=== PATIENT | male | born 1940 | race Caucasian/White ===

== ENCOUNTER 2017-07-10 06:28 | Emergency (ER) | payer MEDICARE, BC ==
[2017-07-10 06:44] VITALS: BP 166/73
[2017-07-10] MEDS ORDERED: Acetaminophen/oxyCODONE 325-5 MG Tab PO ONE (07:04)
--- NOTE | 2017-07-10 07:04 | EDM.PDOC ---
ED HPI GENERAL MEDICAL PROBLEM - General Chief Complaint: Back Pain or Injury Stated Complaint: FELL ON ICE RIB PAIN Time Seen by Provider: 07/10/17 06:59 Source of Information: Reports: Patient History Limitations: Reports: No Limitations - History of Present Illness INITIAL COMMENTS - FREE TEXT/NARRATIVE: 76-year-old male attends the ED with increasing pain in his right flank area. Patient initial injury occurred 2 days ago when he got out of his vehicle slipped on the ice landing very hard on his right lower mid back. Dr. henley out of him for a period of time. States she had x-rays done at [facility] of the thoracic spine which apparently did not show any fractures. He was to the chiropractor yesterday and was told that he had a rib head out of place and it was remanipulated. States pain is been terrible since time of injury to the point that he is unable to sleep. Spent the last 2 nights in the easy chair sitting up. Some tramadol for pain which is not helping at all. Patient cannot take a deep breath. Cough sounds quite gurgly and wet. He is a smoker as well. Fever chills at this time. He denies hitting his head or losing consciousness. States he can't hardly move his right arm because it makes his back pain worse. Cannot take a deep breath at all. Hurts very badly to cough. Onset: Sudden Onset Date: 07/08/17 Onset Time: 07:00 Duration: Day(s): Location: Reports: Back (Right flank area over ribs 8 and 9 and 10.) Quality: Reports: Ache, Sharp, Stabbing Severity: Moderate Improves with: Reports: Rest Worsens with: Reports: Other, Movement Context: Denies: Activity (Coughing makes it much worse. Moving his right arm also makes it hurt worse.), Exercise, Lifting, Sick Contact, Trauma Associated Symptoms: Reports: Chest Pain, Cough, cough w sputum, Shortness of Breath (Can take a deep breath because it makes the pain much worse.). Denies: No Other Symptoms, Confusion (Right posterior chest wall pain), Diaphoresis, Fever/Chills, Headaches, Loss of Appetite, Malaise, Nausea/Vomiting, Rash, Seizure, Syncope, Weakness Treatments SCOW HAND: Reports: Other (see below) (Using tramadol for pain relief without much relief.) Right Middle Back Pain Score (Numeric/FACES): 10 - Related Data Allergies Allergy/AdvReac Type Severity Reaction Status Date / Time No Known Allergies Allergy Verified 07/10/17 06:44 Home Meds: Home Meds Hydrochlorothiazide/Lisinopril [Lisinopril/HCTZ 10-12.5 MG] 10 - 12.5 mg PO DAILY 11/14/15 [History] amLODIPine Besylate [Amlodipine Besylate] 2.5 mg PO DAILY 11/14/15 [History] Acetaminophen/oxyCODONE [Percocet 325-5 MG] 1 - 2 each PO Q4H PRN #24 tab [Rx] Past Medical History HEENT History: Reports: Impaired Vision Cardiovascular History: Reports: Aneurysm, Hypertension - Past Surgical History Cardiovascular Surgical History: Reports: AAA Repair GI Surgical History: Reports: Hernia Repair/Other Social & Family History - Family History Family Medical History: Noncontributory - Tobacco Use Smoking Status *Q: Current Every Day Smoker Years of Tobacco use: 40 Packs/Tins Daily: 1 - Caffeine Use Caffeine Use: Reports: None - Recreational Drug Use Recreational Drug Use: No - Living Situation & Occupation Living situation: Reports: Occupation: Employed ED ROS GENERAL - Review of Systems Review Of Systems: See Below Constitutional: Reports: Decreased Appetite. Denies: Fever, Chills, Malaise, Weakness, Fatigue, Weight Loss HEENT: Reports: No Symptoms Respiratory: Reports: Shortness of Breath, Cough (Chronic cough from cigarette smoking but cough is now worse and very painful to cough in his right flank), Sputum. Denies: Wheezing, Pleuritic Chest Pain, Hemoptysis (Can occasionally get some phlegm up. Denies any hemoptysis.), Other Cardiovascular: Reports: Chest Pain, Blood Pressure Problem (Right posterior chest wall pain.), Dyspnea on Exertion (Chronic hypertension usually well- controlled with medication). Denies: Claudication, Edema, Lightheadedness, Orthopnea, Palpitations, PND, Syncope, Other Endocrine: Reports: No Symptoms GI/Abdominal: Reports: No Symptoms : Reports: No Symptoms Musculoskeletal: Reports: Back Pain (Right back over ribs 89 and 10 clinically.) Skin: Reports: No Symptoms Neurological: Reports: No Symptoms Psychiatric: Reports: No Symptoms ED EXAM, UPPER BACK/NECK PAIN - Physical Exam Exam: See Below Exam Limited By: No Limitations General Appearance: Alert, WD/WN, Moderate Distress (He has to hold real still and avoids coughing be due to the severity of the pain. Movement of his right arm makes the pain much worse.) Eye Exam: Bilateral Eye: Normal Inspection Head Exam: Atraumatic, Normocephalic Neck Exam: Normal Alignment, Normal Inspection, Limited Range of Motion. No: Muscle Spasm, Painful Range of Motion, Paraspinous Muscle Tender Cardiovascular/Respiratory: Regular Rate, Rhythm, No JVD, Rhonchi (Right lower lung field with some dullness to percussion suggestive of a possible hemothorax right posterior lung field. Gurgling respirations on deep breathing and coughing.), Other (Respiratory is 20/m. Pulse ox is not listed.). No: Normal Peripheral Pulses, Normal Breath Sounds GI/Abdominal: Normal Bowel Sounds, Soft, Non-Tender, No Organomegaly, No Distention, No Abnormal Bruit, No Mass, Pelvis Stable. No: Hepatomegaly Back Exam: CVA Tenderness (R) (Very tender over ribs 8 and 9 and 10 posterior laterally with over lying swelling. No ecchymoses or abrasions in this area yet. ), Other (Mostly rib tenderness.). No: Full Range of Motion, Vertebral Tenderness Extremities: Normal Inspection, Normal Range of Motion, Non-Tender, No Pedal Edema, Normal Capillary Refill Neurologic: No Motor/Sensory Deficits, Alert, Normal Mood/Affect, Oriented x 3 Psychiatric: Normal Affect, Normal Mood Skin Exam: Normal Color, Warm/Dry Lymphatic: No Adenopathy Course - Vital Signs Last Recorded V/S: Last Vital Signs Temp 36.4 C 07/10/17 06:38 Pulse 104 H 07/10/17 06:38 Resp 20 07/10/17 06:38 BP 166/73 H 07/10/17 06:38 Pulse Ox - Orders/Labs/Meds Orders: Active Orders 24 hr Category Date Time Status Chest wo Cont [CT] Stat Exams 07/10/17 07:04 Taken Meds: Medications Discontinued Medications Generic Name Dose Route Start Last Admin Trade Name Freq PRN Reason Stop Dose Admin Oxycodone/Acetaminophen 2 tab 07/10/17 07:04 07/10/17 07:10 Percocet 325-5 Mg PO 07/10/17 07:05 2 tab ONETIME ONE Administration - Radiology Interpretation Free Text/Narrative:: 76-year-old male presents to the ED for evaluation of his persistent severe pain right flank area of his posterior back after slipping and falling on ice 2 days ago. He's been seen at [facility] 2 days ago x-rays of his thoracic spine were apparently carried out and reported to be negative. He was to the chiropractor yesterday and apparently told he had a rib head out and was put back in place. States the pain is constant and worsened by breathing and coughing. Unable to sleep due to the severity of pain. Is using tramadol for pain relief with Bentyl very little relief. Examination shows pain localized to the eighth ninth and 10th ribs posterior laterally in the right side. Gurgling respirations are present on examinations suggesting possible underlying hemothorax. There is overlying swelling in this area. Question whether he's developed a hemothorax from fractured rib. Plan CT chest without contrast. We' ll give him 2 Percocet tablets by mouth with some crackers as he has not yet eaten today. - Re-Assessments/Exams Free Text/Narrative Re-Assessment/Exam: 07/10/17 08:01 CT chest reveals atelectasis in the right lower lobe and perhaps a mild hemothorax. An early pneumonia cannot be ruled out although the patient does not have a fever. There appears to be fractures of the sixth , seventh ,eighth and ninth ribs posteriorly laterally. Treatment to to be Renard wrap for comfort measures. Percocet tabs 5/325 one or 2 every 4-6 hours as needed for pain relief 24 tabs provided. Patient advised to use the Renard wrap daily for 10-14 days until comfortable. Advised to be sleeping in the easy chair for the next 3 weeks before he can get back into bed to sleep comfortably. He will report back to hospital. The develops any fever chills or increased productive cough. He is a smoker and therefore at risk of pneumonia. Advised MiraLAX powder 17 g once daily well on the pain pills to prevent constipation. Departure - Departure Time of Disposition: 07:54 Disposition: Home, Self-Care 01 Condition: Fair Clinical Impression: Fracture four ribs-closed Qualifiers: Encounter type: initial encounter Laterality: right Qualified Code(s): S22.41XA - Multiple fractures of ribs, right side, initial encounter for closed fracture - Discharge Information Prescriptions: Acetaminophen/oxyCODONE [Percocet 325-5 MG] 1 - 2 each PO Q4H PRN #24 tab PRN Reason: pain relief. Instructions: Rib Fracture, [id number] Referrals: PCP,None [Primary Care Provider] - Forms: ED Department Discharge Additional Instructions: Evaluation the emergency room this morning in regards to blunt trauma suffered to the right posterior lateral chest wall from falling on the ice 2 days ago. Examination reveals swelling and severe pain with movement of the right arm. Severe pain with deep breathing and coughing. CT of the chest confirms fracture of 4 ribs on the right posterior lateral chest wall. Ribs 678 and 9 appear to have been fractured. They are good position and will heal on their own but they continue to move with every breath and movement. Bone and start to get sticky about 10 days after injury in this starts to limit the movement and they start to mid together. It'll be a full 6 weeks until these ribs are minutes together completely. Activity as tolerated. Renard wrap on during the day for the next 10- 12 days. Or until you can breathe comfortably without it. Pain medication is Percocet 09/03/24 one or 2 tablets every 4-6 hours needed for pain relief. Because these pain medicines like to cause constipation suggest also buying some MiraLAX powder and taking 1 scoop once daily to prevent constipation from the pain pills. Follow-up with personal care physician if any further problems occur. - My Orders Last 24 Hours: My Active Orders 07/10/17 07:04 Chest wo Cont [CT] Stat - Assessment/Plan Last 24 Hours: My Active Orders 07/10/17 07:04 Chest wo Cont [CT] Stat
--- NOTE | 2017-07-10 08:35 | CT ---
CT chest Technique: Multiple axial sections through the chest were obtained. Intravenous contrast not utilized. Comparison: No prior chest x-ray. Findings: Graft is partially visualized within the aorta. Coronary artery calcification is seen. Slightly prominent mediastinal lymph nodes are noted most likely reactive from old inflammatory process. Atherosclerotic change is noted within the nondilated thoracic aorta. Parenchymal density is noted within the right lung base. Emphysematous changes are noted. Slight parenchymal densities are also seen within the right middle lobe and lingula. Scarring is noted within the right lung apex. Subpleural blebs are noted on the right side as well as mild scattered bullous change. Fractures are seen within the posterolateral fifth, sixth and seventh right ribs. Mild displacement is seen of the fifth and sixth ribs. No additional fracture is seen within the ribs. Degenerative change is seen within the spine. No compression deformities are seen. Reconstructed sagittal images showing the sternum to appear unremarkable other than vacuum phenomena at the sternomanubrial junction. Impression: 1. Fractures within the fifth, sixth and seventh ribs as noted above. 2. Parenchymal density within the right lung base. If patient has infectious symptoms this could represent an area of pneumonia. Findings could also represent scarring and fibrosis. 3. Diffuse emphysematous change is present. 4. Other incidental findings as noted above. Diagnostic code #3
== END 2017-07-10 08:06 | disposition home or self-care (01) ==
LOC: JD.ED 06:28
DX: S22.41XA Multiple fractures of ribs, right side, initial encounter for closed fracture (principal); I10 Essential (primary) hypertension; F17.210 Nicotine dependence, cigarettes, uncomplicated; Z79.899 Other long term (current) drug therapy; W00.0XXA Fall on same level due to ice and snow, initial encounter
CPT/HCPCS: 71250; 99284; A9270; 99283

== ENCOUNTER 2017-07-10 18:08 | Emergency (ER) | payer MEDICARE, BC ==
[2017-07-10 18:44] VITALS: BP 130/72
--- NOTE | 2017-07-10 18:56 | EDM.PDOC ---
ED HPI GENERAL MEDICAL PROBLEM - General Chief Complaint: Lower Extremity Injury/Pain Stated Complaint: FEET ARE SWELLING Time Seen by Provider: 07/10/17 18:40 Source of Information: Reports: Patient, Family History Limitations: Reports: No Limitations (Son) - History of Present Illness INITIAL COMMENTS - FREE TEXT/NARRATIVE: 76-year-old male attends the ED for the second time today. His chief complaint now is swelling of his feet. He was concerned that is related to his new pain medication which he was prescribed this morning for 4 broken ribs on his right posterior lateral thorax. However one examine his feet they are swollen up to mid tib-fib and raw obviously swollen this morning but I did not examine them as I was concerned more with his chest. Patient has Lasix pills at home already but he doesn't usually take them. Patient was overall reassured that the medication is not causing his feet to swell. His other concern is that the pain medication isn't helping the pain all that much. He slept for only 2 hours today and he tried to go to bed had terrible pain when he tried to get out of bed. I have advised him earlier this morning that he needs to stay in the easy chair to sleep for the next 3 weeks. He therefore appears to be quite obstinate and stubborn. His son is here with him today and understands that he is on for the most part maximum amount of pain medication for his age. Otherwise and will start to cause confusion and potentially make him fall. I therefore suggested that he take Motrin 600 mg every 6-8 hours for pain relief in addition to the cassette. Onset: Unknown/Unsure (Patient was concerned that his leg started swelling after he started the pain medicine today which is impossible.) Onset Date: 07/06/17 (Slipped and fell while getting out of his vehicle 4 days ago landing hard on his right back. See history of present illness in chart done earlier this morning.) Duration: Day(s): Location: Reports: Chest (Fell 4 days ago injury to posterior lateral right chest wall) Quality: Reports: Ache, Sharp, Stabbing Severity: Moderate (Continues to have moderate to severe pain because he is continue to try and be as active as he was normally. He refuses basically to take it easy and rest.) Improves with: Reports: Rest Worsens with: Reports: Movement Context: Reports: Trauma (Abdomen fell initially with blunt trauma to the right posterior lateral chest wall and back) Associated Symptoms: Reports: Chest Pain, Cough (Has a cough from previous cigarette smoking with COPD.) Treatments PULP PILER: Reports: Other (see below) Other Treatments PULP PILER: oxycodone prn Bilateral Lower Leg Pain Score (Numeric/FACES): 10 - Related Data Allergies Allergy/AdvReac Type Severity Reaction Status Date / Time No Known Allergies Allergy Verified 07/10/17 06:44 Home Meds: Home Meds amLODIPine Besylate [Amlodipine Besylate] 2.5 mg PO DAILY 11/14/15 [History] Acetaminophen/oxyCODONE [Percocet 325-5 MG] 1 - 2 each PO Q4H PRN #24 tab [Rx] Lisinopril 10 mg PO DAILY 07/10/17 [History] Rosuvastatin [Crestor] 20 mg PO DAILY 07/10/17 [History] Past Medical History HEENT History: Reports: Impaired Vision Cardiovascular History: Reports: Aneurysm, Hypertension - Past Surgical History Cardiovascular Surgical History: Reports: AAA Repair GI Surgical History: Reports: Hernia Repair/Other Social & Family History - Family History Family Medical History: Noncontributory - Tobacco Use Smoking Status *Q: Current Every Day Smoker Years of Tobacco use: 40 Packs/Tins Daily: 0.5 - Caffeine Use Caffeine Use: Reports: Coffee, Soda - Recreational Drug Use Recreational Drug Use: No - Living Situation & Occupation Living situation: Reports: Occupation: Employed Review of Systems - Review of Systems Review Of Systems: See Below Constitutional: Reports: No Symptoms Eyes: Reports: No Symptoms Ears: Reports: No Symptoms Nose: Reports: No Symptoms Mouth/Throat: Reports: No Symptoms Respiratory: Reports: Shortness of Breath, Wheezing, Cough, Other (Has known COPD.). Denies: Pleuritic Chest Pain Cardiovascular: Reports: Edema (He does have chronic edema of his lower extremities although he fails to recognize this at most times. Has a history of being placed on Lasix in the past as well as hydrochlorothiazide with lisinopril daily which he refuses to take. Lasix primarily because it makes him void too much and the other medication because it made him dizzy lightheaded did drop his blood pressure too much.). Denies: Chest Pain GI/Abdominal: Reports: No Symptoms Genitourinary: Reports: Other (Urinary frequency due to prostatic hypertrophy.) Musculoskeletal: Reports: Back Pain, Other (Right chest wall pain due to fall fractured ribs identified on CT earlier today.) Skin: Reports: No Symptoms Neurological: Reports: Confusion (I find the patient perhaps a little confused and disoriented likely because of the pain medication.) Psychiatric: Reports: Mood Lability ED EXAM, GENERAL - Physical Exam Exam: See Below Exam Limited By: Other (Patient is a little rough around the edges and hard to get along with because he is quite stubborn and he doesn't listen quite so well. ) General Appearance: Alert, Moderate Distress (He is in a moderate amount of pain as he continues to move he doesn't sit still and he believes he should be better in a couple of days. Shirt on many times that it'll be at least 3 weeks before he is able to move around fairly normally and sleep in a normal bed and 6 weeks until his ribs are healed up completely.) Head: Atraumatic, Normocephalic Neck: Normal Inspection, Supple, Non-Tender, Full Range of Motion, Limited Range of Motion (Crepitus with movement of his neck due to underlying osteoarthritic changes) Respiratory/Chest: Respiratory Distress (Mild tachypnea at rest.), Decreased Breath Sounds, Wheezing (Breath sounds are diminished to the posterior 25-30% of lung bass due to COPD. No expiratory wheeze heard bilaterally.) Cardiovascular: Regular Rate, Rhythm, Other (Patient does have 3+ pitting edema both lower extremities up to the upper tib-fib bilaterally.) Peripheral Pulses: 1+: Posterior Tibial (L) (When standing his feet are bluish in color due to a sacral cyanosis because of his COPD and O2 sats of 88-92% on room air. Also venous pooling in his feet is causing him to look a little lower than normal.), Posterior Tibial (R), Dorsalis Pedis (L), Dorsalis Pedis (R) Course - Vital Signs Last Recorded V/S: Last Vital Signs Temp 36.7 C 07/10/17 18:39 Pulse 103 H 07/10/17 18:39 Resp 20 07/10/17 18:39 BP 130/72 07/10/17 18:39 Pulse Ox 86 L 07/10/17 18:39 - Radiology Interpretation Free Text/Narrative:: 76-year-old male who might seen earlier in the day and diagnosed with fractured right ribs 678-9 on the right posterior lateral chest wall by CT exam returns to the ED with concerns that his swelling feet are secondary to the new pain medicine Percocet. Reassured at length that this is not possible. Percocet will not cause his legs to swell. He has chronic dependent edema and has been placed on Lasix in the past for this which she doesn't take the medication. Patient is discussed and that is not 100% pain-free from the current pain meds and he was reassured at length that he will not be 100% pain-free that the pain medicines are designed to take the edge off the pain. Advised him to take Motrin 600 mg every 6 hours in addition to the Percocet to try and further alleviate his pain. Unfortunately the Motrin may well make him have a little bit of increase in dependent edema. 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 It will improve once he puts his legs up when he sits as he has not been very active the last 4 days due to injury to his ribs. Departure - Departure Time of Disposition: 19:03 Disposition: Home, Self-Care 01 Condition: Fair Clinical Impression: Dependent edema - Discharge Information Referrals: PCP,None [Primary Care Provider] - Additional Instructions: Evaluation in the ED today in regards to increased swelling in her lower extremities which is been present for a lengthy period of time.. Percocet tablets are not contributing to this edema. Edema is increasing for the swelling is increasing in your lower extremities due to being dependent i.e. sitting much more because of your broken ribs or not as active. Her walking the Axes a pump to push the blood back to the heart. This doesn't happen when you' re sitting or not moving. Suggest treatment with Lasix which you have at home. 2 tablets tonight then 1 tablet every morning until the swelling goes down which will be about a week. Pretty of feet up when your resting is very important is a will help the blood get back to your heart as well. As we discussed continue using Motrin 600 mg every 6-8 hours in addition to the Percocet to help with the pain in your ribs until they can begin to heal. The first 10 days of the worst. After 3 weeks things are pretty good but it 6-8 weeks for your ribs to heal completely.
== END 2017-07-10 19:10 | disposition home or self-care (01) ==
LOC: JD.ED 18:08
DX: R60.0 Localized edema (principal); I10 Essential (primary) hypertension; J44.9 Chronic obstructive pulmonary disease, unspecified; F17.210 Nicotine dependence, cigarettes, uncomplicated; Z79.899 Other long term (current) drug therapy; W01.0XXA Fall on same level from slipping, tripping and stumbling without subsequent striking against object, initial encounter
CPT/HCPCS: 99284

== ENCOUNTER 2017-07-30 09:15 | Emergency (ER) | payer MEDICARE, BC ==
--- NOTE | 2017-07-30 10:09 | EDM.PDOC ---
ED HPI GENERAL MEDICAL PROBLEM - General Chief Complaint: Cardiovascular Problem Stated Complaint: SWOLLEN FEET Time Seen by Provider: 07/30/17 09:56 Source of Information: Reports: Patient History Limitations: Reports: No Limitations - History of Present Illness INITIAL COMMENTS - FREE TEXT/NARRATIVE: 76-year-old male presents the ED with gradually increased swelling in both lower extremities particularly the left lower extremity. He states they quite bad at night and interferes with his ability to sleep. Patient has recently fallen and fractured four right ribs(jul 08) and has been laid up a good portion of the last month. He still can't getting out of bed. Therefore he has been sleeping in the easy chair and feet a bit more dependent likely contributing to the increased swelling in both lower extremities. He's been taking Lasix 20 mg daily for the last 5 days with no improvement in the swelling. Her to this he had been taking NSAIDs to help with the right rib pain. Currently only on Tylenol for rib pain at this time. Possibility therefore of intraventricular social nephritis exists that could be contributing to fluid retention. Patient feels that there is fluid within his abdominal cavity as well. Feels much more distended than normal. Denies being short of breath on exertion or having any increased cough. Patient has a history of heavy alcohol use in the past. Onset: Gradual (Gradually increased swelling in lower extremities for greater than a week and probably longer.) Duration: Day(s): Location: Reports: Lower Extremity, Left, Lower Extremity, Right (Both lower extremities are markedly swollen left more so than the rt.) Quality: Reports: Ache Severity: Moderate Improves with: Reports: None, Other (He states they're no better in the morning when he wakes up.) Worsens with: Reports: Other Context: Reports: Other (Has been sleeping in an easy chair the last 20 days since he fractured form his right ribs. Therefore his legs are more dependent than usual.). Denies: Activity (Standing or leg dependency.), Exercise, Lifting , Sick Contact, Trauma Associated Symptoms: Reports: No Other Symptoms, Other (Still has significant pain right ribs with every breath.) Treatments [employer]: Reports: Acetaminophen - Related Data Allergies Allergy/AdvReac Type Severity Reaction Status Date / Time No Known Allergies Allergy Verified 07/30/17 09:28 Home Meds: Home Meds amLODIPine Besylate [Amlodipine Besylate] 2.5 mg PO DAILY 11/14/15 [History] Lisinopril 10 mg PO DAILY 07/10/17 [History] atorvaSTATin [Lipitor] 20 mg PO DAILY 07/10/17 [History] Furosemide [Lasix] 20 mg PO DAILY 07/30/17 [History] Furosemide [Lasix] 40 mg PO DAILY #14 tablet 07/30/17 [Rx] Past Medical History HEENT History: Reports: Impaired Vision Cardiovascular History: Reports: Aneurysm, Hypertension - Past Surgical History Cardiovascular Surgical History: Reports: AAA Repair GI Surgical History: Reports: Hernia Repair/Other Social & Family History - Family History Family Medical History: Noncontributory - Tobacco Use Smoking Status *Q: Former Smoker Years of Tobacco use: 40 Packs/Tins Daily: 0.5 Used Tobacco, but Quit: Yes Month/Year Tobacco Last Used: 2 months ago - Caffeine Use Caffeine Use: Reports: Coffee - Recreational Drug Use Recreational Drug Use: No - Living Situation & Occupation Living situation: Reports: Occupation: Employed ED ROS GENERAL - Review of Systems Review Of Systems: See Below Constitutional: Reports: No Symptoms HEENT: Reports: Glasses Respiratory: Reports: Other (Chest wall pain. Recently fell on the ice and broke for his right posterior lateral ribs. This was 22 days ago.) Cardiovascular: Reports: Chest Pain, Blood Pressure Problem, Claudication ( Chronic hypertension), Dyspnea on Exertion (Severe edema both lower extremities. See history of present illness), Edema. Denies: Lightheadedness ( mild claudication), Orthopnea Endocrine: Reports: Fatigue ( chronically) GI/Abdominal: Reports: No Symptoms : Reports: Frequency, Other (Nocturia 3. Has known BPH.) Musculoskeletal: Reports: Joint Pain (These hips and lower back at times) Skin: Reports: No Symptoms Neurological: Reports: No Symptoms Psychiatric: Reports: No Symptoms Hematologic/Lymphatic: Reports: No Symptoms Immunologic: Reports: No Symptoms ED EXAM, GENERAL - Physical Exam Exam: See Below Exam Limited By: No Limitations General Appearance: Alert, WD/WN, Anxious, Mild Distress Respiratory/Chest: No Respiratory Distress, Lungs Clear, Normal Breath Sounds, No Accessory Muscle Use, Chest Non-Tender Cardiovascular: Normal Peripheral Pulses, Regular Rate, Rhythm, No Gallop, No Murmur. No: No Edema Peripheral Pulses: 1+: Posterior Tibial (L), Posterior Tibial (R), Dorsalis Pedis (L), Dorsalis Pedis (R) GI/Abdominal: Normal Bowel Sounds, Soft, Non-Tender, No Organomegaly, Other ( Questionable fluid wave on examination possible mild ascites present.) Back Exam: Normal Inspection, Full Range of Motion. No: CVA Tenderness (L), CVA Tenderness (R) Extremities: Pedal Edema (4+ pitting edema both lower extremities worse on the left as compared to the right. Edema is up past his knees bilaterally.) Neurological: Alert, Oriented, CN II-XII Intact, Normal Cognition Psychiatric: Normal Affect, Normal Mood Skin Exam: Warm, Dry, Intact, Normal Color, No Rash Course - Vital Signs Last Recorded V/S: Last Vital Signs Temp 37.0 C 07/30/17 09:20 Pulse 80 07/30/17 13:17 Resp 18 07/30/17 09:20 BP 140/73 07/30/17 13:17 Pulse Ox 98 07/30/17 13:17 - Orders/Labs/Meds Orders: Active Orders 24 hr Category Date Time Status URINALYSIS W/MICROSCOPIC [UA W/MICROSCOPIC] [URIN] Stat Lab 07/30/17 10:26 Ordered Labs: Laboratory Tests 07/30/17 07/30/17 07/30/17 Range/Units 10:26 10:28 10:28 WBC 8.93 (4.23-9.07) K/mm3 RBC 5.86 (4.63-6.08) M/mm3 Hgb 17.8 H (13.7-17.5) gm/L Hct 52.2 H (40.1-51.0) % MCV 89.1 (79.0-92.2) fl MCH 30.4 (25.7-32.2) pg MCHC 34.1 (32.2-35.5) g/dl RDW Std Deviation 45.9 H (35.1-43.9) fL Plt Count 279 (163-337) K/mm3 MPV 9.7 (9.4-12.3) fl Neutrophils % (Manual) 48 (40-60) % Band Neutrophils % 0 (0-10) % Lymphocytes % (Manual) 45 H (20-40) % Atypical Lymphs % 0 % Monocytes % (Manual) 5 (2-10) % Eosinophils % (Manual) 2 (0.8-7.0) % Basophils % (Manual) 0 L (0.2-1.2) Platelet Estimate Adequate RBC Morph Comment Normal PT 11.4 (8.0-13.0) SECONDS INR 1.06 APTT 28 (22-36) SECONDS D-Dimer, Quantitative 0.95 H (0.19-0.59) mg/L Sodium (136-145) mEq/L Potassium (3.5-5.1) mEq/L Chloride (98-107) mEq/L Carbon Dioxide (21-32) mEq/L Anion Gap (5-15) BUN (7-18) mg/dL Creatinine (0.7-1.3) mg/dL Est Cr Clr Drug Dosing mL/min Estimated GFR (MDRD) (>60) mL/min BUN/Creatinine Ratio (14-18) Glucose (83-115) mg/dL Calcium (8.5-10.1) mg/dL Magnesium (1.8-2.4) mg/dl Total Bilirubin (0.2-1.0) mg/dL AST (15-37) U/L ALT (16-63) U/L Alkaline Phosphatase (46-116) U/L Troponin I (0.00-0.056) ng/mL C-Reactive Protein (<1.0) mg/dL NT-Pro-B Natriuret Pep (0-450) pg/mL Total Protein (6.4-8.2) g/dl Albumin (3.4-5.0) g/dl Globulin gm/dL Albumin/Globulin Ratio (1-2) Urine Color Light yellow (Yellow) Urine Appearance Slt cloudy H (Clear) Urine pH 7.0 (5.0-8.0) Ur Specific [place] 1.020 (1.005-1.030) Urine Protein Negative (Negative) Urine Glucose (UA) Negative (Negative) Urine Ketones Negative (Negative) Urine Occult Blood Negative (Negative) Urine Nitrite Negative (Negative) Urine Bilirubin Negative (Negative) Urine Urobilinogen 0.2 (0.2-1.0) Ur Leukocyte Esterase Negative (Negative) Urine RBC Not seen (0-5) /hpf Urine WBC 0-5 (0-5) /hpf Ur Epithelial Cells Not seen (0-5) /hpf Amorphous Sediment Moderate H (NOT SEEN) /hpf Urine Bacteria Many H (FEW) /hpf Urine Mucus Not seen (FEW) /hpf 07/30/17 07/30/17 Range/Units 10:28 10:28 WBC (4.23-9.07) K/mm3 RBC (4.63-6.08) M/mm3 Hgb (13.7-17.5) gm/L Hct (40.1-51.0) % MCV (79.0-92.2) fl MCH (25.7-32.2) pg MCHC (32.2-35.5) g/dl RDW Std Deviation (35.1-43.9) fL Plt Count (163-337) K/mm3 MPV (9.4-12.3) fl Neutrophils % (Manual) (40-60) % Band Neutrophils % (0-10) % Lymphocytes % (Manual) (20-40) % Atypical Lymphs % % Monocytes % (Manual) (2-10) % Eosinophils % (Manual) (0.8-7.0) % Basophils % (Manual) (0.2-1.2) Platelet Estimate RBC Morph Comment PT (8.0-13.0) SECONDS INR APTT (22-36) SECONDS D-Dimer, Quantitative (0.19-0.59) mg/L Sodium 140 (136-145) mEq/L Potassium 3.8 (3.5-5.1) mEq/L Chloride 103 (98-107) mEq/L Carbon Dioxide 29 (21-32) mEq/L Anion Gap 11.8 (5-15) BUN 15 (7-18) mg/dL Creatinine 0.8 (0.7-1.3) mg/dL Est Cr Clr Drug Dosing 81.11 mL/min Estimated GFR (MDRD) > 60 (>60) mL/min BUN/Creatinine Ratio 18.8 H (14-18) Glucose 104 (83-115) mg/dL Calcium 9.0 (8.5-10.1) mg/dL Magnesium 2.1 (1.8-2.4) mg/dl Total Bilirubin 0.3 (0.2-1.0) mg/dL AST 18 (15-37) U/L ALT 41 (16-63) U/L Alkaline Phosphatase 146 H (46-116) U/L Troponin I < 0.017 (0.00-0.056) ng/mL C-Reactive Protein 0.4 (<1.0) mg/dL NT-Pro-B Natriuret Pep 44 (0-450) pg/mL Total Protein 7.2 (6.4-8.2) g/dl Albumin 3.6 (3.4-5.0) g/dl Globulin 3.6 gm/dL Albumin/Globulin Ratio 1.0 (1-2) Urine Color (Yellow) Urine Appearance (Clear) Urine pH (5.0-8.0) Ur Specific [place] (1.005-1.030) Urine Protein (Negative) Urine Glucose (UA) (Negative) Urine Ketones (Negative) Urine Occult Blood (Negative) Urine Nitrite (Negative) Urine Bilirubin (Negative) Urine Urobilinogen (0.2-1.0) Ur Leukocyte Esterase (Negative) Urine RBC (0-5) /hpf Urine WBC (0-5) /hpf Ur Epithelial Cells (0-5) /hpf Amorphous Sediment (NOT SEEN) /hpf Urine Bacteria (FEW) /hpf Urine Mucus (FEW) /hpf Meds: Medications Discontinued Medications Generic Name Dose Route Start Last Admin Trade Name Freq PRN Reason Stop Dose Admin Furosemide 40 mg 07/30/17 12:46 07/30/17 13:14 Lasix PO 07/30/17 12:47 40 mg ONETIME ONE Administration - Radiology Interpretation Free Text/Narrative:: 76-year-old male presents the ED for evaluation of increasing dependent edema over the last 7-10 days. Patient has not had this problem in the past. Patient recently fell and fractured 4 ribs right posterior lateral ribs I believe July 08. He therefore is been sleeping in an easy chair for the last 3 weeks. This means his legs are much more dependent than they would be normally. He states however that in spite of Lasix 20 mg daily for the last 5 days the legs remain swollen and are perhaps a little worse. Patient states the legs don't seem to reduce it and there is swelling overnight. He also feels that there is fluid in his abdomen as it's much more distended than normal. Denies any scrotal or penile swelling. Denies any increased shortness of breath or pleuritic chest pain or hemoptysis. No past history of DVT. However he has been laid up substantially since he fractured his ribs i.e. decreased activity placing at some risk of DVT. Doppler ultrasound of both lower extremities will be done. D dimer will be done as well as other routine labs to make sure his renal function is okay and a urinalysis. - Re-Assessments/Exams Free Text/Narrative Re-Assessment/Exam: 07/30/17 11:59 White count is normal at 8.93. Differentials 40% neutrophils no bands .45% lymphocytes. Hemoglobin is 17.8 which is elevated with a hematocrit of 52.2. White count is normal at 279,000. PT is 11.4 with an INR 1.06. PTT is 28. D-dimer is mildly positive at 0.95. Sodium is 140 with potassium of 3.8. Toward 13 with a bicarbonate 29. Anion gap is normal 11.8. Urine is 15 with a creatinine of 0.8. GFR remains greater than 60. Glucose is 104 the calcium of 9.0. Magnesium normal at 2.1. Total bilirubin 0.3. AST is 18 ALT is 41. Alk phosphatase is mildly elevated 146 likely due to recent rib fractures. Cardiac markers are normal. 07/30/17 12:46 Doppler ultrasound report is negative for DVT in either extremity. Definite atherosclerotic arterial disease is evident with lack of flow noted within portions of the both superficial femoral arteries. Patient is scheduled for further investigations in this regard. He does have claudication in his calves with walking. We discussed purchasing some YUNIEL stockings but he has tried some compressive stockings would seem to be too tight. Advised to try and go to [employer] and purchased stockings that would go above his knees to provide compression. It is likely however that once he becomes more active over the next 10-14 days as his rib fractures are healing is dependent edema will resolve. He will take 40 mg of Lasix daily for the next 12 days. Lopid with his personal care physician if any further problems occur. Departure - Departure Time of Disposition: 12:47 Disposition: Home, Self-Care 01 Condition: Fair Clinical Impression: Dependent edema Prescriptions: Furosemide [Lasix] 40 mg PO DAILY #14 tablet Instructions: Edema Referrals: Iqra Casillas, [employer] [Primary Care Provider] - Forms: ED Department Discharge Additional Instructions: Evaluation in the emergency him today carried out due to marked increased fluid retention in both lower extremities. Is a little bit worse on the left leg as compared to the right with fluid evident in the soft tissues up to the knees on both sides. An ultrasound is carried out of the venous system on both legs and no clots were identified. Also blood tests proved to show no abnormalities within the kidneys or liver or heart related illness. The ultrasound did demonstrate poor blood flow to the lower extremities and therefore you do need to have further investigations in regards to high. In the blood vessels in your lower extremities to identify where the blockages are as this is fixable with either stenting or balloon angioplasty. The best treatment for your legs at this time is to try and keep them is elevated is much as possible. The reason for swelling is because of being in the easy chair the last 3 weeks after breaking her ribs. The legs are hanging down more and you're not as active as you were prior to breaking her ribs. Therefore this is causing fluid to slowly pool in the lower extremities stretching the skin and causing some discomfort. You could try compression stockings but they are difficult to put on they would be worn as soon as you get out of bed in the morning and taken off at bedtime daily. The swelling is going to slowly get better as you become more active now since her rib fractures are starting to heal. I will place you on Lasix 40 mg once daily in the morning for the next 14 days and after this you can take your 20s again as needed. The swelling should become much better in the next 5-7 days with the Lasix 40 once a day. Copies of your records will be sent to [facility] per your request. - My Orders Last 24 Hours: My Active Orders 07/30/17 10:26 URINALYSIS W/MICROSCOPIC [UA W/MICROSCOPIC] [URIN] Stat - Assessment/Plan Last 24 Hours: My Active Orders 07/30/17 10:26 URINALYSIS W/MICROSCOPIC [UA W/MICROSCOPIC] [URIN] Stat
--- NOTE | 2017-07-30 12:37 | US ---
Bilateral lower extremity deep venous ultrasound: Duplex and color flow imaging was obtained of the right and left common femoral, proximal greater saphenous, superficial femoral, popliteal, posterior tibial and peroneal veins. Normal phasic flow, augmentation and compression is seen. Diffuse plaque identified within both superficial femoral arteries with lack of flow being seen within portions of both superficial femoral arteries. Impression: 1. No evidence of deep venous thrombosis within either the right or left lower extremity. 2. Atherosclerotic arterial disease with lack of flow noted within portions of both superficial femoral arteries. Diagnostic code #3
[2017-07-30] MEDS ORDERED: Furosemide 40 MG Tab PO ONE (12:46)
[2017-07-30 13:19] VITALS: BP 140/73
== END 2017-07-30 13:19 | disposition home or self-care (01) ==
LOC: JD.ED 09:15
DX: R60.9 Edema, unspecified (principal); R07.89 Other chest pain; R35.1 Nocturia; I10 Essential (primary) hypertension; Z79.899 Other long term (current) drug therapy; Z87.891 Personal history of nicotine dependence
CPT/HCPCS: 36415; 80053; 81001; 83735; 83880; 84484; 85025; 85379; 85610; 85730; 86140; 93970; 99284; A9270; 99283

== ENCOUNTER 2019-06-05 08:47 | Emergency (ER) | payer MEDICARE, BC ==
[2019-06-05 08:59] VITALS: BP 162/77; PULSE 94
--- NOTE | 2019-06-05 09:08 | EDM.PDOC ---
ED HPI GENERAL MEDICAL PROBLEM - General Chief Complaint: Flank Pain Stated Complaint: ABDOMINAL PAIN Time Seen by Provider: 06/05/19 09:02 - History of Present Illness INITIAL COMMENTS - FREE TEXT/NARRATIVE: 78-year-old male presents the emergency room with right-sided abdominal pain. This started Thursday night it is now Thursday morning. He slept most of yesterday he had relief from the discomfort for most the day however the pain came back in the evening. He has not had any fevers or chills denies vomiting. No diarrhea no constipation. His last BM was on Thursday. He has not had anything to eat or drink this morning he ate last night. Patient has never had any abdominal surgeries in the past no prior history of kidney stones. But he has a brother that had a kidney stone. When he ask him where it hurts he points to his right flank. right flank Pain Score (Numeric/FACES): 10 - Related Data Allergies Allergy/AdvReac Type Severity Reaction Status Date / Time No Known Allergies Allergy Verified 06/05/19 09:00 Home Meds: Home Meds amLODIPine Besylate [Amlodipine Besylate] 2.5 mg PO DAILY 11/14/15 [History] Lisinopril 10 mg PO DAILY 07/10/17 [History] atorvaSTATin [Lipitor] 20 mg PO DAILY 07/10/17 [History] Acetaminophen/HYDROcodone [[place] 325-5 MG] 1 - 2 tab PO Q6H PRN #20 tablet 06/05 [Rx] Tamsulosin HCl [Flomax] 0.4 mg PO Q24H #7 capsule 06/05/19 [Rx] Past Medical History HEENT History: Reports: Impaired Vision Cardiovascular History: Reports: Aneurysm, Hypertension - Past Surgical History Cardiovascular Surgical History: Reports: AAA Repair GI Surgical History: Reports: Hernia Repair/Other Social & Family History - Family History Family Medical History: Noncontributory - Tobacco Use Smoking Status *Q: Current Every Day Smoker Years of Tobacco use: 40 Packs/Tins Daily: 1 - Caffeine Use Caffeine Use: Reports: None - Recreational Drug Use Recreational Drug Use: No - Living Situation & Occupation Living situation: Reports: Occupation: Employed ED ROS GENERAL - Review of Systems Review Of Systems: See Below Constitutional: Reports: No Symptoms HEENT: Reports: No Symptoms Respiratory: Reports: No Symptoms Cardiovascular: Reports: No Symptoms GI/Abdominal: Reports: Abdominal Pain. Denies: Constipation, Diarrhea, Nausea, Vomiting Musculoskeletal: Reports: Back Pain Skin: Reports: No Symptoms Neurological: Reports: No Symptoms ED EXAM, GI/ABD - Physical Exam Exam: See Below Exam Limited By: No Limitations General Appearance: Alert, No Apparent Distress Head: Atraumatic, Normocephalic Neck: Normal Inspection Respiratory/Chest: No Respiratory Distress, Lungs Clear, Normal Breath Sounds Cardiovascular: Regular Rate, Rhythm, No Edema, No Murmur GI/Abdominal Exam: Normal Bowel Sounds, Soft, Tender (Pain on the right side but palpation does not seem to make it worse). No: Guarding, Rigid, Rebound Back Exam: Normal Inspection, Other (The area that is most tender is palpated but palpation does not make this any worse). No: CVA Tenderness (L), CVA Tenderness (R) Neurological: Alert, Oriented, Normal Cognition Course - Vital Signs Last Recorded V/S: Last Vital Signs Temp 36.6 C 06/05/19 08:55 Pulse 94 06/05/19 08:55 Resp 19 06/05/19 08:55 BP 162/77 H 06/05/19 08:55 Pulse Ox 91 L 06/05/19 08:55 - Orders/Labs/Meds Orders: Active Orders 24 hr Category Date Time Status Lactated Ringers [Ringers, Lactated] 1,000 ml Med 06/05/19 09:15 Active IV ASDIRECTED Medication Orders Lactated Ringer's (Ringers, Lactated) 1,000 mls @ 125 mls/hr IV ASDIRECTED TREVOR Last Admin: 06/05/19 09:19 Dose: 125 mls/hr Labs: Laboratory Tests 06/05/19 06/05/19 06/05/19 Range/Units 10:10 10:10 10:35 WBC 13.24 H (4.23-9.07) K/mm3 RBC 5.81 (4.63-6.08) M/mm3 Hgb 18.1 H (13.7-17.5) gm/dl Hct 53.5 H (40.1-51.0) % MCV 92.1 D (79.0-92.2) fl MCH 31.2 (25.7-32.2) pg MCHC 33.8 (32.2-35.5) g/dl RDW Std Deviation 45.1 H (35.1-43.9) fL Plt Count 155 L D (163-337) K/mm3 MPV 9.7 (9.4-12.3) fl Neut % (Auto) 83.0 H (34.0-67.9) % Lymph % (Auto) 8.4 L (21.8-53.1) % [place] % (Auto) 7.9 (5.3-12.2) % Eos % (Auto) 0.4 L (0.8-7.0) Baso % (Auto) 0.1 (0.1-1.2) % Neut # (Auto) 11.00 H (1.78-5.38) K/mm3 Lymph # (Auto) 1.11 L (1.32-3.57) K/mm3 [place] # (Auto) 1.05 H (0.30-0.82) K/mm3 Eos # (Auto) 0.05 (0.04-0.54) K/mm3 Baso # (Auto) 0.01 (0.01-0.08) K/mm3 Manual Slide Review Abnormal smear Sodium 138 (136-145) mEq/L Potassium 4.5 (3.5-5.1) mEq/L Chloride 104 (98-107) mEq/L Carbon Dioxide 29 (21-32) mEq/L Anion Gap 9.5 (5-15) BUN 17 (7-18) mg/dL Creatinine 1.4 H (0.7-1.3) mg/dL Est Cr Clr Drug Dosing 44.90 mL/min Estimated GFR (MDRD) 49 (>60) mL/min BUN/Creatinine Ratio 12.1 L (14-18) Glucose 128 H (83-115) mg/dL Calcium 8.4 L (8.5-10.1) mg/dL Total Bilirubin 0.8 (0.2-1.0) mg/dL AST 13 L (15-37) U/L ALT 28 (16-63) U/L Alkaline Phosphatase 118 H (46-116) U/L Total Protein 6.9 (6.4-8.2) g/dl Albumin 3.5 (3.4-5.0) g/dl Globulin 3.4 gm/dL Albumin/Globulin Ratio 1.0 (1-2) Urine Color Dark yellow (Yellow) Urine Appearance Cloudy H (Clear) Urine pH 6.5 (5.0-8.0) Ur Specific [place] > or = 1.030 (1.005-1.030) Urine Protein 2+ H (Negative) Urine Glucose (UA) Negative (Negative) Urine Ketones Negative (Negative) Urine Occult Blood 3+ H (Negative) Urine Nitrite Negative (Negative) Urine Bilirubin 1+ H (Negative) Urine Urobilinogen 1.0 (0.2-1.0) Ur Leukocyte Esterase Negative (Negative) Urine RBC >100 H (0-5) /hpf Urine WBC 5-10 H (0-5) /hpf Ur Epithelial Cells 0-5 (0-5) /hpf Urine Bacteria Few (FEW) /hpf Urine Mucus Moderate H (FEW) /hpf Meds: Medications Generic Name Dose Route Start Last Admin Trade Name Freq PRN Reason Stop Dose Admin Lactated Ringer's 1,000 mls @ 125 mls/hr 06/05/19 09:15 06/05/19 09:19 Ringers, Lactated IV 125 mls/hr ASDIRECTED TREVOR Administration Discontinued Medications Generic Name Dose Route Start Last Admin Trade Name Freq PRN Reason Stop Dose Admin Hydromorphone HCl 0.5 mg 06/05/19 09:10 06/05/19 09:19 Dilaudid IVPUSH 06/05/19 09:11 0.5 mg ONETIME ONE Administration Hydromorphone HCl 0.5 mg 06/05/19 11:59 06/05/19 12:03 Dilaudid IVPUSH 06/05/19 12:00 0.5 mg ONETIME ONE Administration Ondansetron HCl 4 mg 06/05/19 09:27 06/05/19 09:28 Zofran IVPUSH 06/05/19 09:28 4 mg ONETIME STA Administration Ondansetron HCl Confirm 06/05/19 09:27 06/05/19 09:30 Zofran Administered 06/05/19 09:28 Not Given Dose 4 mg .ROUTE .STK-MED ONE Tamsulosin HCl 0.4 mg 06/05/19 13:06 Flomax PO 06/05/19 13:07 ONETIME ONE - Re-Assessments/Exams Free Text/Narrative Re-Assessment/Exam: 06/05/19 09:[address] a [address] with IV contrast only after I review his chemistries. His pain seems to be radiating from somewhere, but cannot be elicited by palpation. 06/05/19 13:07 Patient received a couple doses of Dilaudid and is doing much better pain menard. Labs reviewed his white count is mildly elevated. Urinalysis has significant hematuria and it with a few white cells associated with the hematuria leukocyte esterase nitrates negative. Unenhanced CT was obtained which shows what looks like a 4 mm stone next to a calcification within the wall of the right iliac artery. This correlates with his clinical symptoms. The patient will be started on Flomax and hydrocodone and advised to follow-up with his regular provider on Thursday for follow-up renal function and to see how he is doing Departure - Departure Time of Disposition: :15 Disposition: Home, Self-Care 01 Clinical Impression: Right kidney stone - Discharge Information Prescriptions: Acetaminophen/HYDROcodone [[place] 325-5 MG] 1 - 2 tab PO Q6H PRN #20 tablet PRN Reason: Pain Tamsulosin HCl [Flomax] 0.4 mg PO Q24H #7 capsule Instructions: Kidney Stones Referrals: Austin Worthington MD [Primary Care Provider] - Forms: ED Department Discharge Additional Instructions: Return to the emergency room with any questions problems or worsening symptoms. Follow-up with your regular provider on Thursday for recheck. Strain your urine looking for the stone. Use the pain medication try and use only 1 every 6 hours as needed for pain. Sepsis Event Note - Evaluation Sepsis Screening Result: No Definite Risk - Focused Exam Vital Signs: Vital Signs Temp Pulse Resp BP Pulse Ox 06/05/19 08:55 36.6 C 94 19 162/77 H 91 L Date Exam was Performed: 06/05/19 Time Exam was Performed: 13:19 - My Orders Last 24 Hours: My Active Orders 06/05/19 09:15 Lactated Ringers [Ringers, Lactated] 1,000 ml IV ASDIRECTED - Assessment/Plan Last 24 Hours: My Active Orders 06/05/19 09:15 Lactated Ringers [Ringers, Lactated] 1,000 ml IV ASDIRECTED
[2019-06-05] MEDS ORDERED: HYDROmorphone 0.5 MG/0.5 ML Syringe IVPUSH ONE ×2 (09:10→11:59)
[2019-06-05] MEDS ORDERED: Lactated Ringers 1,000 ML IV SCH (09:15)
[2019-06-05] MEDS ORDERED: Ondansetron 4 MG/2 ML SDV IVPUSH STA (09:27)
[2019-06-05] MEDS ORDERED: Ondansetron 4 MG/2 ML SDV ONE (09:27)
--- NOTE | 2019-06-05 12:30 | CT ---
CT abdomen and pelvis Technique: Multiple axial sections were obtained from above the dome of the diaphragm inferiorly through the pubic symphysis. Intravenous and oral contrast not utilized. Comparison: No prior abdominal imaging. Findings: Slightly dilated collecting system of the right kidney is seen. Proximal right ureter is mildly dilated. There is a calcification being seen adjacent to a calcified wall of the right iliac artery which may possibly represent a stone within the mid right ureter. More distal portions of this ureter show no dilatation. No other abnormal ureteral calculi are seen. No additional renal calculi are seen. There is mild arterial calcification being seen. Other findings: Emphysematous changes seen within both lung bases. No acute parenchymal process is seen. Liver shows no discrete abnormality. Spleen appears within normal limits. Adrenal glands show no nodule. Pancreas is within normal limits. Gallbladder contains no calcified gallstones. Aorta shows evidence of an aortoiliac graft. No pelvic mass or adenopathy is seen. No free fluid is identified. No inflammatory change is seen. Bone window settings were reviewed which shows scattered degenerative change within the spine. Impression: 1. Dilated right kidney collecting system and proximal right ureter is also mildly dilated. Calcification next to a calcified wall of the right iliac artery is seen. This calcification is believed to represent an obstructing stone within the mid right ureter measuring 4 mm. Please correlate that this matches patient's symptoms. 2. Emphysematous change within both lung bases. 3. No other acute findings seen on noncontrast CT study of the abdomen and pelvis. Diagnostic code #3 This report was dictated in [place] Standard Time
[2019-06-05] MEDS ORDERED: Tamsulosin 0.4 MG Cap.ER PO ONE (13:06)
== END 2019-06-05 13:35 | disposition home or self-care (01) ==
LOC: JD.ED 08:47
DX: N20.2 Calculus of kidney with calculus of ureter (principal); I10 Essential (primary) hypertension; F17.210 Nicotine dependence, cigarettes, uncomplicated; Z79.899 Other long term (current) drug therapy
CPT/HCPCS: 36415; 74176; 80053; 81001; 85025; 96361; 96374; 96375; 96376; 99284; A9270; J1170; J2405; J7120; 99283

== ENCOUNTER 2019-06-09 16:52 | Emergency (ER) | payer MEDICARE, BC ==
[2019-06-09 17:21] VITALS: BP 160/78; PULSE 84
[2019-06-09] MEDS ORDERED: Ondansetron 4 MG/2 ML SDV IVPUSH ONE (18:05)
[2019-06-09] MEDS ORDERED: HYDROmorphone 0.5 MG/0.5 ML Syringe IVPUSH ONE (18:05)
[2019-06-09] MEDS ORDERED: Sodium Chloride 0.9% 1,000 ML IV SCH (18:15)
--- NOTE | 2019-06-09 19:00 | CT ---
CT abdomen and pelvis Technique: Multiple axial sections were obtained from above the dome of the diaphragm inferiorly through the pubic symphysis. Intravenous and oral contrast not utilized. Study has been performed as a ureteral stone protocol. Findings: Right ureter is dilated and shows mild surrounding inflammatory change. This finding is caused by a 4.3 mm obstructing stone within the distal right ureter which is located approximately 1.5-2 cm from the UVJ. No additional ureteral calculi are seen. Small nonobstructing stone is noted within the right kidney. Mild vascular calcification is seen within both renal vessels. Other findings: Diffuse emphysematous change is seen within both lung bases. Noncontrast appearance of the liver shows no discrete abnormality. Spleen appears within normal limits. Gallbladder contains no calcified gallstones. Adrenal glands show no nodule. Pancreas is within normal limits. Aorta shows stenting with aortoiliac stents. No retroperitoneal adenopathy or mesenteric abnormalities are seen. No pelvic mass or adenopathy is seen. No free fluid is identified. Appendix is seen which is normal in size. Bone window settings were reviewed which shows minimal degenerative change which is scattered within the spine. No acute osseous finding is seen. Impression: 1. 4.3 mm obstructing stone within the distal right ureter causing proximal hydronephrosis. 2. Other findings as noted above which are nonacute. Diagnostic code #3 This report was dictated in [place] Standard Time
--- NOTE | 2019-06-09 19:23 | EDM.PDOC ---
ED HPI GENERAL MEDICAL PROBLEM - General Chief Complaint: Genitourinary Problem Stated Complaint: BACK PAIN NOT BETTER Time Seen by Provider: 06/09/19 18:00 Source of Information: Reports: Patient History Limitations: Reports: No Limitations - History of Present Illness INITIAL COMMENTS - FREE TEXT/NARRATIVE: Patient is a 78-year-old male who presents with complaints of right flank pain. This last Thursday patient was diagnosed with a 4 mm kidney stone on the right side. He was sent home with hydrocodone and Flomax. Patient states he has about 3 of the hydrocodone left and his last dose was around 3:00 today. He has been taking 1 tab at a time. He comes to the ER because the pain was not relieved by the hydrocodone and he is unable to get comfortable. He is also having some nausea with no vomiting. Denies fever or chills. Right Flank Pain Score (Numeric/FACES): 10 - Related Data Allergies Allergy/AdvReac Type Severity Reaction Status Date / Time No Known Allergies Allergy Verified 06/05/19 09:00 Home Meds: Home Meds amLODIPine Besylate [Amlodipine Besylate] 2.5 mg PO DAILY 11/14/15 [History] Lisinopril 10 mg PO DAILY 07/10/17 [History] atorvaSTATin [Lipitor] 20 mg PO DAILY 07/10/17 [History] Acetaminophen/HYDROcodone [[place] 325-5 MG] 1 - 2 tab PO Q6H PRN #20 tablet 06/05 [Rx] Tamsulosin HCl [Flomax] 0.4 mg PO Q24H #7 capsule 06/05/19 [Rx] Hydrocodone/Acetaminophen [Hydrocodon-Acetaminophen 5-325] 1 - 2 each PO Q4H PRN #15 tablet 06/09/19 [Rx] Tamsulosin [Tamsulosin 24 Hr] 0.4 mg PO DAILY #7 cap.er 06/09/19 [Rx] Past Medical History HEENT History: Reports: Impaired Vision Cardiovascular History: Reports: Aneurysm, Hypertension - Past Surgical History Cardiovascular Surgical History: Reports: AAA Repair GI Surgical History: Reports: Hernia Repair/Other Social & Family History - Family History Family Medical History: Noncontributory - Tobacco Use Smoking Status *Q: Current Every Day Smoker Years of Tobacco use: 50 Packs/Tins Daily: 0.7 - Caffeine Use Caffeine Use: Reports: Coffee, Soda - Recreational Drug Use Recreational Drug Use: No - Living Situation & Occupation Living situation: Reports: Occupation: Employed ED ROS GENERAL - Review of Systems Review Of Systems: Comprehensive ROS is negative, except as noted in HPI. ED EXAM, GI/ABD - Physical Exam Exam: See Below Exam Limited By: No Limitations General Appearance: Alert, WD/WN, Mild Distress Head: Atraumatic, Normocephalic Respiratory/Chest: No Respiratory Distress, Lungs Clear, Normal Breath Sounds, No Accessory Muscle Use, Chest Non-Tender Cardiovascular: Normal Peripheral Pulses, Regular Rate, Rhythm, No Edema, No Gallop, No JVD, No Murmur, No Rub Back Exam: Normal Inspection, CVA Tenderness (R) Neurological: Alert, Oriented, CN II-XII Intact, Normal Cognition, Normal Gait, Normal Reflexes, No Motor/Sensory Deficits Psychiatric: Normal Affect, Normal Mood Skin Exam: Warm, Dry, Intact, Normal Color, No Rash Course - Vital Signs Last Recorded V/S: Last Vital Signs Temp 97.1 F 06/09/19 17:20 Pulse 84 06/09/19 17:20 Resp 20 06/09/19 17:20 BP 160/78 H 06/09/19 17:20 Pulse Ox 90 L 06/09/19 17:20 - Orders/Labs/Meds Orders: Active Orders 24 hr Category Date Time Status Sodium Chloride 0.9% [Normal Saline] 1,000 ml Med 06/09/19 18:15 Active IV ASDIRECTED Medication Orders Sodium Chloride (Normal Saline) 1,000 mls @ 125 mls/hr IV ASDIRECTED TREVOR Last Admin: 06/09/19 18:21 Dose: 125 mls/hr Labs: Laboratory Tests 06/09/19 Range/Units 17:35 Urine Color Yellow (Yellow) Urine Appearance Clear (Clear) Urine pH 6.5 (5.0-8.0) Ur Specific Ava > or = 1.030 (1.005-1.030) Urine Protein Negative (Negative) Urine Glucose (UA) Negative (Negative) Urine Ketones Negative (Negative) Urine Occult Blood 3+ H (Negative) Urine Nitrite Negative (Negative) Urine Bilirubin Negative (Negative) Urine Urobilinogen 1.0 (0.2-1.0) Ur Leukocyte Esterase Negative (Negative) Urine RBC 20-30 H (0-5) /hpf Urine WBC 0-5 (0-5) /hpf Ur Squamous Epith Cells 0-5 (0-5) /hpf Urine Bacteria Few (FEW) /hpf Urine Mucus Few (FEW) /hpf Meds: Medications Generic Name Dose Route Start Last Admin Trade Name Moiz PRN Reason Stop Dose Admin Sodium Chloride 1,000 mls @ 125 mls/hr 06/09/19 18:15 06/09/19 18:21 Normal Saline IV 125 mls/hr ASDIRECTED TREVOR Administration Discontinued Medications Generic Name Dose Route Start Last Admin Trade Name Moiz PRN Reason Stop Dose Admin Hydromorphone HCl 0.5 mg 06/09/19 18:05 06/09/19 18:20 Dilaudid IVPUSH 06/09/19 18:06 0.5 mg ONETIME ONE Administration Ondansetron HCl 4 mg 06/09/19 18:05 06/09/19 18:20 Zofran IVPUSH 06/09/19 18:06 4 mg ONETIME ONE Administration - Re-Assessments/Exams Free Text/Narrative Re-Assessment/Exam: 06/09/19 19:[address] shows a kidney stone is essentially in the same spot and has not moved since Thursday. Urinalysis was negative for any infection but continues to be positive for 3+ occult blood. Discussed with the patient that as long as the stone is within the ureter it will cause pain. He did have relief from the pain with the Dilaudid and Zofran that was given here. I will send a refill of his hydrocodone and Flomax to [place] pharmacy as he only has 3 hydrocodone's left and 2 of the Flomax. I did recommend that he may take 1 tab of the [place], however if the pain is not relieved by this he may take an additional tablet. I did also discuss with him taking a stool softener to avoid constipation. Recommended that he call to schedule an appointment with a primary care provider next week to have his urine rechecked to ensure that he does not develop a urinary tract infection. If the stone has not moved by that time, they can also discuss possible referral to urology. Discharge instructions as documented. Departure - Departure Time of Disposition: 19:17 Disposition: Home, Self-Care 01 Condition: Fair Clinical Impression: Kidney stone - Discharge Information *PRESCRIPTION DRUG MONITORING PROGRAM REVIEWED*: No *COPY OF PRESCRIPTION DRUG MONITORING REPORT IN PATIENT SYED: No Prescriptions: Hydrocodone/Acetaminophen [Hydrocodon-Acetaminophen 5-325] 1 - 2 each PO Q4H PRN #15 tablet PRN Reason: Pain Tamsulosin [Tamsulosin 24 Hr] 0.4 mg PO DAILY #7 cap.er Instructions: Kidney Stones Referrals: Lila Lockwood NP [Ordering Only Provider] - Forms: ED Department Discharge Additional Instructions: You were seen in the emergency department today for right flank pain. You were diagnosed with a kidney stone this last Thursday. CT scan of your abdomen did show that the kidney stone is essentially in the same place that it was on Thursday. Each time the stone tries to move you will have increased pain. Continue to push fluids, strain your urine, and use the hydrocodone's as needed for pain. I have sent a refill of these medications to [place] pharmacy in [place]. I have also sent another 7 days of Flomax prescription to [place] pharmacy in [place]. As we discussed, I do recommend that you start taking a daily stool softener such as Colace. This will prevent constipation related to the hydrocodone's you are taking. I also recommend that you call to schedule an appointment in the clinic for around next Thursday to follow-up on the kidney stone and ensure that you are not developing a infection related to the kidney stone. We have listed Lila Lockwood as your primary care and she will receive a copy of this. If she is not available you may also schedule with any provider. If you should develop any worsening symptoms, please not hesitate to return to the emergency department. Sepsis Event Note - Evaluation Sepsis Screening Result: No Definite Risk - Focused Exam Vital Signs: Vital Signs Temp Pulse Resp BP Pulse Ox 06/09/19 17:20 97.1 F 84 20 160/78 H 90 L Date Exam was Performed: 06/09/19 Time Exam was Performed: 19:25 - My Orders Last 24 Hours: My Active Orders 06/09/19 18:15 Sodium Chloride 0.9% [Normal Saline] 1,000 ml IV ASDIRECTED - Assessment/Plan Last 24 Hours: My Active Orders 06/09/19 18:15 Sodium Chloride 0.9% [Normal Saline] 1,000 ml IV ASDIRECTED
== END 2019-06-09 19:39 | disposition home or self-care (01) ==
LOC: JD.ED 16:52
DX: N13.2 Hydronephrosis with renal and ureteral calculous obstruction (principal); F17.210 Nicotine dependence, cigarettes, uncomplicated; I10 Essential (primary) hypertension; Z79.899 Other long term (current) drug therapy
CPT/HCPCS: 74176; 81001; 96361; 96374; 96375; 99284; J1170; J2405; J7030; 99283